=== PATIENT | female | born 1995 | race Caucasian/White ===

== ENCOUNTER 2017-03-29 07:00 | Inpatient (IN) | payer MEDICAID ==
[~2017-03-29] VITALS: Ht 154.9 cm; Wt 78.9 kg
--- NOTE | ~2017-03-29 | HP ---
ADMIT: 03/29/2017 RM/LOC: 222 [facility] MR#: [id number] [facility] [address] [place], [place] [address] YANETH CLEMENTE [address] [place] [address] History and Physical SEX: F AGE: 21 : 1995 DATE OF SERVICE: HISTORY OF PRESENT ILLNESS: This is a 21-year-old, G1, P0, who presents to Labor and Delivery at 40 and 3/7th weeks by LMP consistent with early ultrasound with complaints of regular painful contractions and possibly loss of fluid. Her has otherwise been uncomplicated. PAST MEDICAL HISTORY: Late entry to care at approximately 17 weeks. PAST SURGICAL HISTORY: None. ALLERGIES: NO KNOWN DRUG ALLERGIES. MEDICATIONS: She takes vitamin once daily. SOCIAL HISTORY: No tobacco. No alcohol. No drug use. She is . She speaks Beninese. She is not currently employed. Pap smear is up-to-date on 10/17/2016 was normal. OBSTETRIC LABORATORIES: GBS is negative. She had an abnormal 1-hour Glucola at 144, her 3-hour Glucola was normal with fasting of 91, 1-hour is 154, her 2- hour was 129, and her 3-hour was 122. Hepatitis B surface antigen was negative. RPR was nonreactive. Rubella immune. Gonorrhea and chlamydia were negative. She is O Rh positive. HIV was negative. Antibody screen was negative, and she had a negative quad screen. PHYSICAL EXAMINATION: VITAL SIGNS: Initial blood pressure upon presentation was 142/78, pulse is 83, respirations 16, and temperature is 98.9. She is 93% on room air. heart tones 140, moderate variability, positive accelerations, no decelerations noted. Contractions are every 2 to 4 minutes. Sterile cervical exam upon presentation was 4.5 cm, 80% effaced, -1 station. Questionable ROM. AmniSure was performed and was negative. ASSESSMENT AND PLAN: This is a 21-year-old, G1, P0, with an intrauterine at 40 and 3/7th weeks. Active labor. Admit to Labor and Delivery. Anticipate normal spontaneous vaginal delivery. GBS negative. Prophylaxis is not indicated. She is rubella immune, Rh positive, so RhoGAM and MMR not indicated . Alba Curtis MD/ bhargavi JOB #: [id number] CC: Robert De Leon, Attending Physician NO FAMILY PHYSICIAN, Family Physician
--- NOTE | ~2017-03-29 | FD ---
ADMIT: 03/29/2017 RM/LOC: 222 [facility] MR#: [id number] [address] [address] [place] YANETH ALVAREZ [address] [place] [address] Final Diagnosis SEX: F AGE: 21 : 1995 ADMISSION DATE: 03/29/2017 DISCHARGE DATE: 03/31/2017 FINAL DIAGNOSIS: 1. Term intrauterine at 40 weeks 3 days. 2. Active labor. PROCEDURE: Spontaneous vaginal delivery. Alba Curtis MD/ aster JOB #: [id number] CC: Robert De Leon MD, Attending Physician FAMILY PHYSICIAN, Family Physician
[2017-04-01] MEDS ORDERED: MOTRIN-DPS800 MG PO (13:05)
[2017-04-01] MEDS ORDERED: TYLENOL EXTRA500 M1 PO (13:05)
[2017-04-01] MEDS ORDERED: PRENATAL VIT1 TAB PO (13:05)
[2017-04-01] MEDS ORDERED: COLACE-DPS100 MG PO (13:05)
[2017-04-01] MEDS ORDERED: DERMOPLAST SPRA56 GM TP (13:06)
[2017-04-01] MEDS ORDERED: TUCKS1 EACH TP (13:06)
[2017-04-01] MEDS ORDERED: LAN-O-SOOTHE7 GM TP (13:06)
[2017-04-01] MEDS ORDERED: NIPPLECREAM TP (13:06)
--- NOTE | 2017-04-04 13:27 | OR ---
ADMIT: 03/29/2017 RM/LOC: 222 [facility] MR#: [id number] [id number] [address] [place] [address] Operative/Delivery Room Report SEX: F AGE: 21 : 1995 SURGERY DATE: 03/29/2017 SURGEON: Alba Curtis MD PREOPERATIVE DIAGNOSES: 1. Term intrauterine at 40 weeks and 3/7th days. 2. Active labor. 3. Spontaneous rupture of membranes. 4. Chorioamnionitis. POSTOPERATIVE DIAGNOSES: 1. Term intrauterine at 40 weeks and 3/7th days. 2. Active labor. 3. Spontaneous rupture of membranes. 4. Chorioamnionitis. PROCEDURE: Spontaneous vaginal delivery. FINDINGS: 1. Viable male infant with scores of 8 and 9 and a weight of 8 pounds 6 ounces or 3798 g. 2. Placenta was intact with 3-vessel cord. 3. There was a second-degree perineal laceration, requiring repair. ANESTHESIA: None. ESTIMATED BLOOD LOSS: 350 mL. INDICATIONS FOR PROCEDURE: This is a 21-year-old , who presented to Labor and Delivery at 40-3/7th weeks in active labor. Her had otherwise been uncomplicated. She progressed normally through labor. She did require some augmentation with Pitocin. She was also found to be febrile and was diagnosed with chorioamnionitis, and ampicillin and gentamicin were also started. She did progress normally, and was found to be complete. ADMIT: 03/29/2017 RM/LOC: 222 [facility] MR#: [id number] [id number] [address] YANETH CLEMENTE [address] [place] [address] Operative/Delivery Room Report SEX: F AGE: 21 : 1995 DESCRIPTION OF PROCEDURE: With maternal expulsive efforts, head was delivered over intact perineum. No nuchal cord was noted. The rest of the then delivered. Infant was placed on maternal chest. Delayed cord clamping was employed. Cord was then clamped and cut, and cord blood was collected. The placenta then delivered spontaneously intact. On exam of the perineum, there was a second-degree laceration that did require repair using 3- 0 Vicryl in the standard fashion after injection of 1% lidocaine without epinephrine in the surrounding tissue. Sponge and instrument counts were correct x2. EBL was 350 mL. DISPOSITION: Mom stable in delivery room. to nursery. Alba Curtis MD/ bhargavi JOB #: [id number] CC: Robert De Leon, Attending Physician NO FAMILY PHYSICIAN, Family Physician
== END 2017-03-31 15:30 | disposition home or self-care (01) | DRG 775 ==
LOC: BC 07:00 → 2LDRP 07:00
PROC: 10E0XZZ Delivery of Products of Conception, External Approach (ICD-10-PCS; principal; 2017-03-29)
PROC: 0KQM0ZZ Repair Perineum Muscle, Open Approach (ICD-10-PCS; principal; 2017-03-29)
DX: O41.1230 Chorioamnionitis, third trimester, not applicable or unspecified (principal); O48.0 Post-term pregnancy; O70.1 Second degree perineal laceration during delivery; Z3A.40 40 weeks gestation of pregnancy; Z37.0 Single live birth